=== PATIENT | male | born 1945 | race Caucasian/White ===

== ENCOUNTER 2020-10-14 15:04 | Emergency (ER) | payer OTHER ==
[~2020-10-14] VITALS: Ht 162.6 cm; Wt 61.7 kg
== END 2020-10-14 20:51 | disposition home or self-care (01) ==
LOC: ER 15:04
DX: S80.01XA Contusion of right knee, initial encounter (principal); M13.861 Other specified arthritis, right knee; W18.09XA Striking against other object with subsequent fall, initial encounter; Y93.H9 Activity, other involving exterior property and land maintenance, building and construction; Y92.89 Other specified places as the place of occurrence of the external cause; Y99.8 Other external cause status

== ENCOUNTER 2024-10-22 16:16 | Emergency (ER) | payer OTHER ==
[~2024-10-22] VITALS: Ht 167.6 cm; Wt 58.1 kg
[2024-10-22] MEDS ORDERED: 0.9 % SODIUM CHLORIDE 1,000 ML IV STA (18:20)
[2024-10-22 19:03] LABS: HEMATOCRIT 37.3 % (39.0-48.0); HEMOGLOBIN 12.2 g/dL (13-16.00); MEAN CELL VOLUME 90.4 fL (80.0-100.00); MEAN CORPUSCULAR HEMOGLOBIN 29.5 pg (27.00-32.0); MEAN CORPUSCULAR HGB CONC 32.7 g/dl (32.0-36.0); PLATELET COUNT 318 K/uL (150-450); RED BLOOD COUNT 4.12 M/uL (4.00-6.00); RED CELL DISTRIBUTION WIDTH 13.1 % (11.5-14.5)
[2024-10-22 19:13] LABS: ERYTHROCYTE SEDIMENTATION RATE 32 mm/hr
[2024-10-22 19:22] LABS: INR 1.01; PARTIAL THROMBOPLASTIN TIME 27.3 SECONDS (22.0-34.0)
[2024-10-22 19:30] LABS: ALBUMIN 3.8 gm/dL (3.4-5.0); BILIRUBIN TOTAL 2.28 mg/dL (0.3-1.2); CALCIUM 9.3 mg/dL (8.5-10.1); CREATININE SERUM 1.33 mg/dL (0.70-1.30); GFR 52.28; POTASSIUM 4.7 mEq/L (3.5-5.1); TOTAL PROTEIN 7.8 gm/dL (6.4-8.2)
[2024-10-22 20:17] LABS: URINE APPEARANCE Clear; URINE BILIRRUBIN Negative (NEGATIVE); URINE BLOOD Trace; URINE COLOR Yellow; URINE GLUCOSE Negative (NEGATIVE); URINE KETONE 15 (NEGATIVE); URINE LEUKOCYTE Small; URINE NITRATE Negative; URINE PROTEIN Trace (NEGATIVE); URINE UROBILINOGEN 0.2 E.U./dl
[2024-10-22 20:26] LABS: URINE BACTERIA 94.2 uL (0.0-1933); URINE EPITHELIAL CELLS 13.1 uL (0.0-38.8); URINE RBC 5.5 uL (0.0-20.8); URINE WBC 132.3 uL (0.0-23.2)
[2024-10-22 20:33] LABS: URINE CAST 0.14 uL (0.0-1.40)
== END 2024-10-22 21:42 | disposition home or self-care (01) ==
LOC: ER 16:19
DX: F03.90 Unspecified dementia, unspecified severity, without behavioral disturbance, psychotic disturbance, mood disturbance, and anxiety (principal); R41.82 Altered mental status, unspecified; E86.0 Dehydration
CPT/HCPCS: 36415; 70450; 71045; 93005; 96365; 96366; 99284; J7030